=== PATIENT | male | born 1925 | race Caucasian/White ===

== ENCOUNTER → 2016-07-10 | Outpatient (CLI) | payer MEDICARE | LOC: RAD 11:09 | DX: J15.8 Pneumonia due to other specified bacteria (principal); R91.8 Other nonspecific abnormal finding of lung field; Z88.0 Allergy status to penicillin | CPT/HCPCS: 71020 ==

== ENCOUNTER → 2016-08-31 | Outpatient (CLI) | payer MEDICARE | LOC: RAD 14:46 | DX: J20.8 Acute bronchitis due to other specified organisms (principal); J43.8 Other emphysema | CPT/HCPCS: 71020 ==